=== PATIENT | female | born 1960 | race Caucasian/White ===

== ENCOUNTER 2025-01-01 11:20 | Day surgery (SDC) | payer OTHER, SELFPAY ==
[2024-12-19 10:43] VITALS: BMI 32.8
[2024-12-19 11:14] LABS: % Basophils 0.6 % (0-2); % Eosinophils 2.2 % (0-6); % Immature Granulocytes 0.4 % (0-0.5); % Lymphocytes 39.5 % (20.5-51.1); % Monocytes 7.7 % (1.7-9.3); % Neutrophils 49.6 % (42.2-75.2); Absolute Basophils 0.1 10^3/uL (0-0.2); Absolute Eosinophils 0.2 10^3/uL (0-0.7); Absolute Lymphocytes 3.1 10^3/uL (1.2-3.4); Absolute Monocytes 0.6 10^3/uL (0.1-0.6); Absolute Neutrophils 3.9 10^3/uL (1.4-6.5); Hematocrit 36.7 % (37.0-47.0); Hemoglobin 12.2 g/dL (12.0-16.0); Mean Corp Hgb Conc. 33.2 g/dL (33.0-37.0); Mean Corpuscular Hgb 32.1 pg (27.0-31.0); Mean Corpuscular Volume 96.6 fL (81.0-99.0); Mean Platelet Volume 9.6 fL (7.4-10.4); Nucleated Red Blood Cells % 0 %; Platelet Count 287 10^3/uL (130-400); Red Cell Dist. Width 12.9 % (11.5-14.5); White Blood Cell Count 7.9 10^3/uL (4.8-10.8)
[2024-12-19 11:46] LABS: ALT (SGPT) 20 U/L (0-35); AST (SGOT) 24 U/L (14-36); Albumin 4.9 g/dl (3.5-5.0); Alkaline Phosphatase 79 U/L (38-126); Blood Urea Nitrogen 24 mg/dl (7-17); Calcium 9.9 mg/dl (8.4-10.2); Carbon Dioxide 27 mmol/L (22-30); Chloride 105 mmol/L (98-107); Estimated Creatinine Clearance 60 ml/min; Glucose 93 mg/dl (70-99); Potassium 5.3 mmol/L (3.5-5.1); Sodium 142 mmol/L (135-145); Total Bilirubin 0.5 mg/dl (0.2-1.3); Total Protein 8.1 g/dl (6.3-8.2); eGFR 55.76
[2024-12-19 13:31] LABS: NT-proBNP 50.7 pg/ml
[2025-01-01] VITALS (9 sets, daily range): BP systolic 95–136; BP diastolic 61–80; BMI 35.2
[2025-01-01] MEDS: NSS 279 ML IV (12:51)
--- NOTE | 2025-01-01 15:31 | ITS.CL.PN ---
[employer] - Procedure Note
Procedure
Procedure Note:
CARDIAC CATHETERIZATION REPORT
Date of Procedure: 01/01/25
Referring: Dr. Chirag Brand MD
Indication: positive cardiac stress test, angina
PROCEDURE(S)
1. left heart catheterization
2. coronary angiography
ACCESS: 6F right radial artery (closure: radial band)
CATHETERS
1. 6F JR4
2. 6F JL3.5
MODERATE SEDATION: 25 minutes of moderate sedation was utilized. An independent medical insurance biller was present to assist with and help manage the patient's level of consciousness and physiologic status.
HEMODYNAMIC DATA
LV 145/4 (EDP 9) mmHg
AO 148/79 (mean 109) mmHg
CORONARY ANGIOGRAPHY
Dominance: left
LM: large without disease
LAD: moderate caliber vessel giving rise to two small very high rising diagonal branches and wrapping around the apex. There is a 40% tubular stenosis in the proximal LAD and otherwise mild luminal irregularities.
LCx: large vessel giving rise to several very small marginal branches, a small LPL branch and small LPDA. There are trivial luminal irregularities only.
RCA: small and non-dominant, no significant disease
RADIATION: dose 384.0 mGy; DAP 21.916: Gy*cm2; fluoroscopy time 4.9 min
CONCLUSIONS
1. Nonobstructive coronary artery disease as described in a left dominant system
2. Normal LV filling pressure and no aortic stenosis
RECOMMENDATIONS
1. Secondary prevention of coronary artery disease with high intensity statin
Copy to: Dr. Chirag Brand MD (spiral winder); Dr. Amish Willoughby MD (PCP)
Signed: Tim Ortiz MD, PhD
[2025-01-01] MEDS: NSS 1000 IV (15:42)
== END 2025-01-01 18:10 | disposition home or self-care (01) ==
LOC: CATH 11:20
PROVIDERS: Physician Assistant Medical; ATTENDING PHYSICIAN Student in an Organized Health Care Education/Training Program; FAMILY PHYSICIAN Internal Medicine; OTHER PHYSICIAN Internal Medicine Cardiovascular Disease
DX: I25.119 Atherosclerotic heart disease of native coronary artery with unspecified angina pectoris (principal); I12.9 Hypertensive chronic kidney disease with stage 1 through stage 4 chronic kidney disease, or unspecified chronic kidney disease; Z68.32 Body mass index [BMI] 32.0-32.9, adult; E66.9 Obesity, unspecified; Z79.82 Long term (current) use of aspirin; Z87.891 Personal history of nicotine dependence; R05.9 Cough, unspecified; R60.9 Edema, unspecified; E03.9 Hypothyroidism, unspecified; E78.5 Hyperlipidemia, unspecified; Z79.890 Hormone replacement therapy
CPT/HCPCS: 36415; 80053; 83880; 85025; 93005; 93458; 99152; 99153; C1894; Q9967